=== PATIENT | male | born 1965 | race Caucasian/White ===

== ENCOUNTER 2020-03-19 10:56 | Emergency (ER) | payer SELFPAY ==
[2020-03-19 10:57] VITALS: BMI 24.3
[2020-03-19 10:59] VITALS: BP 153/119; PULSE 75; RESP 20; TEMP 36.4; O2SAT 98
--- NOTE | 2020-03-19 11:03 | CT_ITS ---
WS: [id number] CT kidney stone 09370 REASON FOR EXAM: right flank pain IV CONTRAST ADMINISTERED: None. TOTAL EXAM DLP: 799.[address] scans at use at least one of these dose optimization techniques: automat ed exposure control; mA and/or kV adjustment per patient size (includes targeted exams where dose is matched to clinical indication); or iterative reconstruction. FINDINGS: The lower lung campbell are normal. The liver was of normal size showed normal echotexture. The pancreas head, body, tail were normal. The spleen, stomach, aorta and inferior vena cava were normal The adrenal glands bilaterally were normal. The left kidney along the superior pole shows a cyst measures 3.14 cm. The right kidney is mildly hydronephrotic the ureter slightly dilated and distally at the ureterovesi sandor junction there is a 3.71 mm stone present which appears to be almost into the bladder. Mild hydro ureter is seen. The descending colon sigmoid colon show extensive reticulosis no evidence of diverticulitis. The aorta shows heavy arteriosclerotic changes IMPRESSION: Benign cyst of the left kidney Partially obstructing stone at the distal ureterovesical junction. On the right side with mild right- sided hydronephrosis hydroureter.
--- NOTE | 2020-03-19 11:05 | W.ED.ABDPA2 ---
HPI - Abdominal Pain General: Chief Complaint: Abdominal Pain Stated Complaint: RIGHT FLANK AND ABD PAIN Time Seen by Provider: 03/19/20 10:59 History of Present Illness: HPI narrative: Patient comes in with right flank pain starting last night worsened this morning. Patient reports one episode of nausea and vomiting, one episode of night sweats last night. Patient does have a history of diverticulitis and renal calculi. Patient appears well. Patient appears in moderate to severe pain. Patient came in by EMS and had been given 100 mcg of fentanyl in route. MD elicited complaint: flank pain Review of Systems General: Reports: 10 or more systems reviewed and unremarkable except in HPI and below GI: Reports: abdominal pain (Right flank) PFSH ED PFSH: Social History Smoking and tobacco status: current every day smoker Physical Exam Const: COMMON NORMALS: no acute distress and patient oriented x3 GENERAL APPEARANCE: cooperative HENMT: COMMON NORMALS: normocephalic, TM's normal bilaterally and Normal external nose present HEAD & SCALP: normal to inspection and normocephalic NOSE: Normal external nose present TYMPANIC MEMBRANE: TM's normal bilaterally MOUTH: Normal oral and palatal mucosa present THROAT: posterior oropharynx normal Eye: GENERAL EYE: appearance normal, both eyes and all related structures Neck/C-Spine: COMMON NORMALS: full ROM Lymph: LYMPHATIC: no lymphadenopathy noted Chest: COMMONS NORMALS: normal inspection of the chest Resp: COMMON NORMALS: normal respiratory effort EFFORT & INSPECTION: Yes able to speak in complete sentences Cardio: COMMON NORMALS: regular rate and regular rhythm RATE: regular rate RHYTHM: regular rhythm GI: PALPATION: Yes Tenderness to palpation present (GI) (Right lower quadrant abdomen, right flank) : BLADDER/KIDNEY EXAM: Yes CVA tenderness Back/Pelvis: COMMON NORMALS: thoracic and lumbar spine normal to inspection GENERAL BACK: Yes CVA tenderness CVA tenderness: right Extremity: COMMON NORMALS: normal to inspection Neuro: COMMON NORMALS: patient oriented x3 and moves all extremities Psych: COMMON NORMALS: mental status grossly normal and cooperative Skin: COMMON NORMALS: no rashes or lesions noted GENERAL SKIN EXAM: no rashes or lesions noted Course Vital Signs: Vital signs: Vital Signs Temperature 97.6 F 03/19/20 10:59 Pulse Rate 75 03/19/20 10:59 Respiratory Rate 18 03/19/20 11:37 Blood Pressure 153/119 03/19/20 10:59 Pulse Oximetry 97 03/19/20 11:37 MDM - Abdominal Pain MDM Narrative: Medical decision making narrative: Patient comes in today with right flank pain radiating down into his groin. Patient came in by EMS to this severe pain. Patient was given fentanyl in route with mild relief. Exam notes some right CVA tenderness. And right abdominal tenderness. Vital signs were normal. No acute distress was noted. Differential diagnosis includes renal calculi, appendicitis, gastroenteritis, urinary tract infection, gallbladder disease. Laboratory values are normal. Urinalysis was positive for red blood cells. CT scan of the abdomen and pelvis noted a distal right ureter calculi. Reviewed exam with patient with recommendations for treatment and follow-up with urology. Patient reported understanding and agreed to plan. Case management will assist with referral to urology. Patient is has a barrier to care due to no insurance. Lab Data: Labs: Lab Results 03/19/20 03/19/20 03/19/20 Range/Units 11:10 11:14 11:14 WBC 7.7 (4.0-10.0) 10^3/ uL RBC 4.65 (4.1-5.3) 10^6/u L Hgb 14.2 (11.7-16.6) g/dL Hct 43.0 (42.0-52.0) % MCV 92.5 (80-94) fL MCH 30.5 (28.0-34.0) pg MCHC 33.0 (30.0-36.0) g/dL RDW 12.6 (12.1-15.1) % Plt Count 203 (130-400) 10^3/c mm MPV 9.5 (7.4-10.4) fL Neut % (Auto) 61.5 % Lymph % (Auto) 24.2 % [place] % (Auto) 10.1 % Eos % (Auto) 3.8 % Baso % (Auto) 0.3 % Neut # (Auto) 4.8 (1.8-7.7) 10^3/u L Lymph # (Auto) 1.9 (0.8-4.8) 10^3/u L [place] # (Auto) 0.8 (0.2-0.9) 10^3/u L Eos # (Auto) 0.3 (0.0-0.8) 10^3/u L Baso # (Auto) 0.0 (0.0-0.1) 10^3/u L Nucleated RBC % (a uto) 0 % Nucleated RBCs # 0.0 /100WBC Sodium 139 (136-145) mmol/L Potassium 4.4 (3.5-5.1) mmol/L Chloride 103 (98-107) mmol/L Carbon Dioxide 24 (22-29) mmol/L Anion Gap 16.4 (5-19) BUN 15 (6-20) mg/dL Creatinine 0.9 (0.7-1.2) mg/dL GFR Calculation 87.3 L (90-130) mL/min Glucose 108 (65-115) mg/dL Calculated Osmolal ity 285 (285-295) mOsm/k g Calcium 9.1 (8.5-10.5) mg/dL Total Bilirubin 0.5 (0.15-1.2) mg/dL AST 15 (0-40) U/L ALT 10 (0-41) U/L Alkaline Phosphata se 105 (40-130) IU/L Total Protein 6.9 (6.6-8.7) g/dL Albumin 4.2 (3.5-5.2) g/dL Globulin 2.7 (1.3-4.6) g/dL Urine Color Yellow (Yellow) Urine Appearance Clear (CLEAR) Urine pH 5.0 (5-7) Ur Specific Gravit y 1.025 (1.005-1.030) Urine Protein Neg (Negative) Urine Glucose (UA) Norm (Normal) Urine Ketones Negative (Negative) Urine Blood 2+ H (Negative) Urine Nitrate Negative (Negative) Urine Bilirubin 1+ H (NEGATIVE) Urine Urobilinogen Norm (Negative) mg/dL Ur Leukocyte Bruna ase Negative (Negative) Urine RBC 5-10 H (0-2) /hpf Urine WBC None (0-5) /hpf Ur Squamous Epith Cells 0-4 H (0-5) Calcium Oxalate Cr ystal 5-10 H /hpf Urine Bacteria Trace (NONE) Urine Mucus 2+ Discharge Plan Discharge Patient Disposition: Home, Self-Care Clinical Impression: Right ureteral calculus Condition: Stable Prescriptions: New hydrocodone-acetaminophen 7.5-325 mg tablet 1 tab PO Q6H PRN (Reason: pain, severe) Qty: 14 RF: 0 tamsulosin 0.4 mg capsule 0.4 mg PO DAILY Qty: 10 RF: 0 ondansetron HCl 4 mg tablet 4 mg PO Q8H PRN (Reason: nausea and vomiting) Qty: 10 RF: 0 No Action omeprazole 20 mg Capsule,Delayed Release(Dr/Ec) 20 mg PO DAILY RF: 0 Discharge Orders: Discharge Order (Routine); Ordered 03/19/20 Ordered By: Jigar Harvey Discharge Diet: Usual diet Discharge Activity: Increase activity as tolerated Patient Instructions: Kidney Stones (ED) Activity Restrictions/Additional Instructions: Drink plenty of water with medication. Activity as tolerated. Case management will contact you with follow-up with urologist office. Return to the ER for high fever or worsening symptoms. Follow-up with primary care in 1 week as needed. Coding Level of Care Code ED Sales Marketing Coordinator for Kwabena Fwtodd Exam Comprehensive
[2020-03-19 11:20] LABS: Basophils % 0.3 %; Eosinophils # 0.3 10^3/uL (0.0-0.8); Eosinophils % 3.8 %; Hemoglobin 14.2 g/dL (11.7-16.6); Lymphocytes # 1.9 10^3/uL (0.8-4.8); Lymphocytes % 24.2 %; Mean Corpuscular Hemoglobin 30.5 pg (28.0-34.0); Mean Corpuscular Volume 92.5 fL (80-94); Mean Platelet Volume 9.5 fL (7.4-10.4); Monocytes # 0.8 10^3/uL (0.2-0.9); Monocytes % 10.1 %; Neutrophils # 4.8 10^3/uL (1.8-7.7); Neutrophils % 61.5 %; Nucleated Red Blood Cells % 0 %; Platelet Count 203 10^3/cmm (130-400); Red Blood Count 4.65 10^6/uL (4.1-5.3); Red Cell Distribution Width 12.6 % (12.1-15.1); White Blood Count 7.7 10^3/uL (4.0-10.0)
[2020-03-19 11:23] LABS: Add Urine Microscopic? YES; Bilirubin Urine 1+ (NEGATIVE); Blood Urine 2+ (Negative); Glucose Urine UA Norm (Normal); Ketones Urine Negative (Negative); Leukocyte Esterase Urine Negative (Negative); Nitrate Urine Negative (Negative); Protein Urine Neg (Negative); Specific Gravity, Urine 1.025 (1.005-1.030); Urine Appearance Clear (CLEAR); Urine Color Yellow (Yellow); Urobilinogen Urine Norm (Negative)
[2020-03-19] MEDS: ondansetron 2 mg/ML SDV 2 mL 4 MG IVP (11:35)
[2020-03-19 11:36] LABS: Alanine Aminotransferase 10 U/L (0-41); Albumin Level 4.2 g/dL (3.5-5.2); Alkaline Phosphatase 105 IU/L (40-130); Anion Gap 16.4 (5-19); Aspartate Amino Transferase 15 U/L (0-40); Blood Urea Nitrogen 15 mg/dL (6-20); Calcium 9.1 mg/dL (8.5-10.5); Carbon Dioxide 24 mmol/L (22-29); Chloride 103 mmol/L (98-107); Globulin 2.7 g/dL (1.3-4.6); Glomerular Filtration Rate 87.3 mL/min (90-130); Glucose 108 mg/dL (65-115); Osmolality Calculated 285 mOsm/kg (285-295); Potassium 4.4 mmol/L (3.5-5.1); Sodium 139 mmol/L (136-145); Total Bilirubin 0.5 mg/dL (0.15-1.2); Total Protein 6.9 g/dL (6.6-8.7)
[2020-03-19 11:37] VITALS: RESP 18; O2SAT 97
[2020-03-19 11:37] LABS: Add Urine Culture? No; Bacteria Urine TRACE; Mucus Urine 2+; Squamous Epithelial Cell Urine 0-4 (0-5)
[2020-03-19] MEDS: ketorolac 30 mg/mL INJ 15 MG IVP (11:37)
[2020-03-19] MEDS: HYDROmorphone 1 mg/mL INJ 1 mL IVP (11:37)
--- NOTE | 2020-03-19 12:40 | DCPLANNER ---
tutoring manager was asked to schedule a follow up appointment for patient with Dr. Woodard. tutoring manager called the office of Dr. Woodard, spoke with Corine, gave clinic patients information. tutoring manager was told that patients information would be printed and given to Edie for review. Clinic will call patient with appointment information.
[2020-03-19 12:42] VITALS: BP 135/86; PULSE 72; RESP 18; O2SAT 98
--- NOTE | 2020-03-20 08:40 | DCPLANNER ---
Patient has a follow up appointment scheduled for , March 20, 2020 at 3:[address] Woodard. Clinic will call patient with appointment information.
--- NOTE | 2020-04-03 12:37 | DCPLANNER ---
Patient had an appointment scheduled for 03.20.[address] Woodard. Patient did attend the appointment.
== END 2020-03-19 12:42 | disposition home or self-care (01) ==
PROVIDERS: Emergency Provider Nurse Practitioner Family
DX: N20.1 Calculus of ureter (principal); F17.210 Nicotine dependence, cigarettes, uncomplicated
CPT/HCPCS: 12345; 36415; 74176; 80053; 81001; 85025; 96374; 96375; 99282; 99283; J1170; J1885; J2405

== ENCOUNTER 2020-03-20 14:28 | Outpatient (CLI) | payer SELFPAY ==
--- NOTE | 2020-03-20 09:00 | XR_ITS ---
WS: [id number] XR KUB 16829 REASON FOR EXAM: URETERAL CALCULUS FINDINGS: Review CT evaluation shows a stone in the right ureter today's exam shows marked fecal alberta is overriding both kidneys with poor definition of the kidneys. Line the bladder area did not show a stone. The ureter regions were clear bilaterally. XR/XR KUB [id number] IMPRESSION: Unable to identify a stone by radiographic procedure. There is marked fecal stasis obstructing both kidneys evaluation.
== END 2020-03-20 14:29 | disposition home or self-care (01) ==
PROVIDERS: Visit Provider Urology
DX: N20.1 Calculus of ureter (principal)
CPT/HCPCS: 74018; 81001

== ENCOUNTER 2021-08-07 11:15 | Emergency (ER) | payer SELFPAY ==
[2021-08-07] VITALS (7 sets, daily range): BP systolic 117–170; BP diastolic 66–103; PULSE 61–81; RESP 17–19; TEMP 36.4–37; O2SAT 95–99; BMI 34.4
--- NOTE | 2021-08-07 11:28 | W.ED.PSYCH ---
HPI - Psych General: Chief Complaint: Psychiatric Symptoms Stated Complaint: PSYCH EVAL Time Seen by Provider: 08/07/21 11:27 History of Present Illness: HPI Narrative: Mr Abraham is a 55 year old gentleman who present to the ED via law enforcent for psych eval. Per law enforcement affidavit the patient was reporting possible hallucinations a was running around the eid with a knife and on neighbors properties. The patient reports that he had people chasing him on his property to he grabbed a knife for protection and ran off his property. The patient says that he has seen the people before the day prior but does not no them. He denies hallucinations, psychiatric history, SI or HI. He is calm and cooperative and denies current complaints. As such, there are no provoking, exacerbating, intensity, quality, exacerbating, or alleviating history elements. Review of Systems General: Reports: 10 or more systems reviewed and unremarkable except in HPI and below PFSH ED PFSH: Family History Other CAD (coronary artery disease) Cancer Marfan syndrome Social History Smoking and tobacco status: current every day smoker Alcohol intake: former Adopted: No Caregiver/support person: No Lives independently: No Marital status: Current occupational status: unemployed History of recent travel: No Physical Exam Narrative: EXAM NARRATIVE: GENERAL/CONSTITUTIONAL - well-appearing. No acute distress. Eyes - PERRL, no conjunctival injection ENMT - Atraumatic external nose and ears. Moist mucous membranes NECK - supple. trachea midline CARDIOVASCULAR - regular rate and rhythm. RESPIRATORY -clear to auscultation bilaterally. ABDOMEN/GI - Nontender/Nondistended. MSK - Extremities without obvious deformity or tenderness to palpation SKIN - Warm, Dry NEURO - alert and appropriately oriented. Moves all extremities equally. PSYCH - Appropriate mood and affect Course ED course: - Patient was seen and evaluated by me at bedside - Patient placed on cardiac monitors, IV access obtained - Initial evaluation notable for no acute distress, non toxic - Labs notable for no significant abnormality to explain symptoms - I discussed the patient with his son, no recent psych history or past psych diagnosis. No history of suicide attempts. 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 - UDS positive for amphetamines. - Upon serial reexamination after treatment the patient was similar - Based on patient history, evaluation, labs, and imaging as interpreted the most likely cause of the patient's condition is unclear. Patient denies SI and HI. He is calm, cooperative, thoughts are linear and goal oriented. Patient has capacity to make healthcare decisions. - The results of ED evaluation were discussed with the patient including prescriptions and/or symptomatic cares (if applicable) including appropriate and responsible use, followup plan, and return precautions. The patient verbalized understanding and felt safe for discharge. - Patient discharged in satisfactory condition. Vital Signs: Vital signs: Vital Signs Temperature 98.4 F 08/07/21 15:54 Pulse Rate 64 08/07/21 15:54 Respiratory Rate 17 08/07/21 15:54 Blood Pressure 117/66 08/07/21 15:54 Pulse Oximetry 99 08/07/21 15:54 MDM - Psych Medical Records: Attestation: I reviewed the patient's medical records. Lab Data: Attestation: I reviewed the patient's lab results. Labs: Lab Results 08/07/21 08/07/21 08/07/21 10:22 10:22 14:24 WBC 6.9 10^3/uL 10^3/ uL (4.0-10.0) RBC 4.57 10^6/uL 10^6 /uL (4.1-5.3) Hgb 13.9 g/dL g/dL (11.7-16.6) Hct 43.0 % % (42.0-52.0) MCV 94.1 fl H fl (80-94) MCH 30.4 pg pg (28.0-34.0) MCHC 32.3 g/dL g/dL (30.0-36.0) RDW 13.4 % % (12.1-15.1) Plt Count 223 10^3/cmm 10^3 /cmm (130-400) MPV 11.5 fL H fL (7.4-10.4) Neut % (Auto) 69.2 % % Lymph % (Auto) 19.8 % % [place] % (Auto) 8.4 % % Eos % (Auto) 1.3 % % Baso % (Auto) 1.0 % % Neut # (Auto) 4.78 10^3/uL 10^3 /uL (1.8-7.7) Lymph # (Auto) 1.4 10^3/uL 10^3/ uL (0.8-4.8) [place] # (Auto) 0.6 10^3/uL 10^3/ uL (0.2-0.9) Eos # (Auto) 0.1 10^3/uL 10^3/ uL (0.0-0.8) Baso # (Auto) 0.1 10^3/uL 10^3/ uL (0.0-0.1) Nucleated RBC % (a uto) 0 % % Nucleated RBCs # 0.0 /100WBC /100W BC Sodium 138 mmol/L mmol/L (136-145) Potassium 4.4 mmol/L mmol/L (3.5-5.1) Chloride 100 mmol/L mmol/L (98-107) Carbon Dioxide 28 mmol/L mmol/L (22-29) Anion Gap 14.4 (5-19) BUN 10 mg/dL mg/dL (6-20) Creatinine 0.8 mg/dL mg/dL (0.7-1.2) GFR Calculation 99.6 mL/min mL/mi n (90-130) Glucose 87 mg/dL mg/dL (65-115) Calculated Osmolal ity 284 mOsm/kg L mOs m/kg (285-295) Calcium 9.6 mg/dL mg/dL (8.5-10.5) Total Bilirubin 0.6 mg/dL mg/dL (0.15-1.2) AST 15 U/L U/L (0-40) ALT 13 U/L U/L (0-41) Alkaline Phosphata se 98 IU/L IU/L (40-130) Total Protein 7.3 g/dL g/dL (6.6-8.7) Albumin 4.5 g/dL g/dL (3.5-5.2) Globulin 2.8 g/dL g/dL (1.3-4.6) Salicylates < 0.3 mg/dL L mg/ dL (3-10) Urine Opiates Scre en Negative ng/mL ng /mL (Negative) Acetaminophen < 5.0 ug/mL L ug/ mL (10-30) Ur Barbiturates Sc reen Negative ng/mL ng /mL (Negative) Ur Phencyclidine S crn Negative ng/mL ng /mL (Negative) Ur Amphetamines Sc reen Positive ng/mL H ng/mL (Negative) U Benzodiazepines Scrn Negative ng/mL ng /mL (Negative) Urine Cocaine Scre en Negative ng/mL ng /mL (Negative) U Marijuana (THC) Screen Positive ng/mL H ng/mL (Negative) Ethyl Alcohol < 10 mg/dL mg/dL (0-10) EKG Data^: EKG 1: Attestation: I personally reviewed and interpreted this EKG as follows: EKG interpretation date: 10/07/21 EKG interpretation time: 13:21 Interpretation: Twelve-lead EKG shows a regular rhythm at a rate of 59. IA interval 201. QRS duration 90. QTc 414. normal [place]. . Interpretation: sinus Rhythm. . Discharge Plan Discharge Patient Disposition: Home Clinical Impression: Polysubstance abuse, Encounter for psychiatric assessment Condition: Stable Prescriptions: No Action No Known Home Medications RF: 0 Discharge Orders: Discharge ED (Routine); Ordered 08/07/21 Ordered By: Vick Young Discharge Diet: Usual diet Discharge Activity: Resume usual activity Patient Instructions: Cannabis Abuse (ED), Methamphetamine Abuse (ED) Activity Restrictions/Additional Instructions: Thank you for visiting the emergency department. You were seen and evaluated for psychiatric evaluation. In discussion and after evaluation there is no condition that would require hospitalization at this time. The events of this morning may have been related to substance abuse. We recommend that you stop abusing substances, failure to do so may lead to or worse. Please follow-up with your primary care provider. Please return the emergency department for any psychiatric concerns, suicidal or homicidal ideation, or anything else that you are concerned about and feel needs emergency department evaluation. Coding Level of Care Code ED Gastroenterology Technician for Kwabena Walsh
--- NOTE | 2021-08-07 12:07 | ECG_ITS ---
[facility] Test Date: 2021-08-07 Pat Name: Robert Abraham Department: Room: Gender: Male Scheme Technician: : 1965 Requested By: Vick Young Order Number: [id number] Coleman MD: Vikash Soni M.D. Measurements Intervals [place] Rate: 59 P: 55 NE: 201 QRS: 20 QRSD: 90 T: 35 QT: 414 QTc: 413 Interpretive Statements SINUS BRADYCARDIA No previous ECG available for comparison Electronically Signed On 08-07-2021 22:39:05 CDT by Vikash Soni M.D. [id number]
[2021-08-07 13:13] LABS: Basophils # 0.1 10^3/uL (0.0-0.1); Eosinophils # 0.1 10^3/uL (0.0-0.8); Eosinophils % 1.3 %; Hemoglobin 13.9 g/dL (11.7-16.6); Lymphocytes # 1.4 10^3/uL (0.8-4.8); Lymphocytes % 19.8 %; Mean Corpuscular HGB Conc 32.3 g/dL (30.0-36.0); Mean Corpuscular Hemoglobin 30.4 pg (28.0-34.0); Mean Corpuscular Volume 94.1 fl (80-94); Mean Platelet Volume 11.5 fL (7.4-10.4); Monocytes # 0.6 10^3/uL (0.2-0.9); Monocytes % 8.4 %; Neutrophils # 4.78 10^3/uL (1.8-7.7); Neutrophils % 69.2 %; Nucleated Red Blood Cells % 0 %; Platelet Count 223 10^3/cmm (130-400); Red Blood Count 4.57 10^6/uL (4.1-5.3); Red Cell Distribution Width 13.4 % (12.1-15.1); White Blood Count 6.9 10^3/uL (4.0-10.0)
[2021-08-07 13:36] LABS: Acetaminophen < 5.0 ug/mL (10-30); Alanine Aminotransferase 13 U/L (0-41); Albumin Level 4.5 g/dL (3.5-5.2); Alcohol Level < 10 mg/dL (0-10); Alkaline Phosphatase 98 IU/L (40-130); Anion Gap 14.4 (5-19); Aspartate Amino Transferase 15 U/L (0-40); Blood Urea Nitrogen 10 mg/dL (6-20); Calcium 9.6 mg/dL (8.5-10.5); Carbon Dioxide 28 mmol/L (22-29); Chloride 100 mmol/L (98-107); Globulin 2.8 g/dL (1.3-4.6); Glomerular Filtration Rate 99.6 mL/min (90-130); Glucose 87 mg/dL (65-115); Osmolality Calculated 284 mOsm/kg (285-295); Potassium 4.4 mmol/L (3.5-5.1); Salicylate < 0.3 mg/dL (3-10); Sodium 138 mmol/L (136-145); Total Bilirubin 0.6 mg/dL (0.15-1.2); Total Protein 7.3 g/dL (6.6-8.7)
[2021-08-07 14:05] LABS: Slide Review Slide Review Perform
[2021-08-07 15:04] LABS: Amphetamines Screen Urine Positive (Negative); Barbiturates Screen Urine Negative (Negative); Benzodiazepines Screen Urine Negative (Negative); Cocaine Screen Urine Negative (Negative); Opiate Screen Urine Negative (Negative); PCP Screen Urine Negative (Negative); THC Screen Urine Positive (Negative)
--- NOTE | 2021-08-07 15:23 | PC.NURSE ---
Addendum entered by Aida Grossman RN 08/07/21 15:37: Pt requested that I call his son. Original Note: Called Robert at [phone] to update him on his father's condition.
--- NOTE | 2021-08-07 15:35 | PC.NURSE ---
Called Robert at [phone] to update him on his fathers discharge status. Left message with patient approval
== END 2021-08-07 15:56 | disposition home or self-care (01) ==
PROVIDERS: Emergency Provider Emergency Medicine
DX: F19.10 Other psychoactive substance abuse, uncomplicated (principal); F17.210 Nicotine dependence, cigarettes, uncomplicated
CPT/HCPCS: 80053; 80306; 80307; 85025; 93005; 99283